=== PATIENT | male | born 1970 | race Caucasian/White ===

== ENCOUNTER → 2016-06-26 | Outpatient (CLI) | payer BC ==
--- NOTE | 2016-06-26 21:41 | PN ---
DATE OF SERVICE: 06/26/2016 A 45-year-old gentleman who has been followed in the sleep center for treatment of severe obstructive sleep apnea/hypopnea index. Apnea-hypopnea index 94. Patient is on treatment with BiPAP. I checked his BiPAP unit. Pressure is 16/12 cm of water. Usage is 30 out of 30 nights for more than 4 hours every 7.5 hours, leak 38 L/min. Patient did not change his nasal pillow mask for a while and it is loose. Apnea-hypopnea index reading from the machine is only 0.8, which is perfect. MEDICATIONS: 1. Omeprazole. 2. Testosterone. [place] Sleepiness Scale is 7. During physical exam, patient in no distress. BP 144/89, HR 84, RR 16. Height 5 feet 11 inches. Weight 334, BMI 46.5. Patient lost weight from 361 pounds down to 339 pounds. Temperature 97.2. Like since last titration was last visit. Oxygen saturation at room air 97%. HEENT: PERRLA, EOMI. LUNGS: Clear. HEART: S1, S2 regular. ABDOMEN: Soft, nontender. EXTREMITIES: No edema. IMPRESSION: 1. Severe obstructive sleep apnea-hypopnea syndrome on full control with bi-level positive airway pressure 16/12 cm of water. Patient demonstrated 100% compliance with treatment, benefitting from treatment. 2. Obesity. Patient lost 20 pounds. 3. Hypertension. 4. Acid reflux. 5. History psoriasis. 6. Restriction of nasal breathing. 7. Status post right eye surgery in the past. PLAN: 1. Continue treatment with CPAP every night for the whole night. 2. Continue losing weight. 3. Sleep hygiene with regular time in bed for at least 8 hours. 4. No driving if feeling any sleepiness. 5. Prescription for all necessary CPAP supplies, including mask, tube, filters. 6. Followup visit in 1 year. Thank you very much for allowing me to participate in the management your patient. Sincerely, Xavi Arguello MD, PhD, FAASM. Diplomat of [place] [employer], Sleep Medicine Board by [place] [employer] [place] [employer] Wrapper Stemmer Operator of [facility] [place]
== END | disposition home or self-care (01) ==

== ENCOUNTER → 2021-07-25 | Outpatient (CLI) | payer BC ==
--- NOTE | 2021-07-25 15:49 | CONS ---
CONSULTATION DATE OF SERVICE: 07/25/2021 This 51-year-old gentleman has been evaluated in Sleep Center for obstructive sleep apnea-hypopnea syndrome. HISTORY OF PRESENT ILLNESS/SLEEP-WAKE EVALUATION: The last time I saw this patient was 4 years ago. He continues to be on treatment with CPAP and he is using the equipment every night for the whole night. The patient was diagnosed with sleep apnea in 2008. Since that time, he has been on treatment with BiPAP. His sleep schedule on weekdays is from 10 p.m. to 3:30 a.m. and on weekends from 11 p.m. until 8 a.m. No problems with falling asleep. No TV in bedroom. He usually sleeps on the back position. He wakes up from sleep maybe once with an episode of nocturia. No snoring while on treatment with BiPAP. No history of hypnagogic hallucinations, sleep paralysis or cataplexy. He does not take any naps. [place] Sleepiness Scale is 4, which is in normal range. I checked the patient's BiPAP unit. Pressure is 16/12 cm of water. Usage is 30/30 nights and 29/30 nights for more than 4 hours. Leak is 47 L/minute. Patient is using an AirFit P10 nasal pillow mask. Apnea-hypopnea index is only 1.8, which is totally normal. PAST MEDICAL HISTORY: Positive for hypertension, acid reflux, psoriasis, hyperlipidemia, allergies. PAST SURGICAL HISTORY: Right eye surgery, abdominal hernia repair. MEDICATIONS: Omeprazole, Lipitor, antihistamine medication. REVIEW OF SYSTEMS: Occasional snoring on CPAP; otherwise negative. No fevers. No double vision. No recent chest pain. No shortness of breath. No abdominal pain. No bleeding episodes. No blood in the urine. No seizure episodes. SOCIAL HISTORY: Smoking on and off for 30 years. Alcohol consumption occasional. FAMILY HISTORY: Hypertension, acid reflux. PHYSICAL EXAMINATION: GENERAL: Pleasant gentleman without distress. VITAL SIGNS: BP 147/92, HR 75, RR 15, height 5 feet 10-1/4 inches, weight 335 pounds, body mass index 47.7, temperature 97.7, oxygen saturation at room air 98%. HEENT: PERRLA, EOMI, evaluation of oropharynx showed tongue protrudes midline. Low position of soft palate. NECK: Supple, no JVD. Thyroid is not palpable. Neck is wide; 18-1/2 inches in circumference. LUNGS: Clear to percussion and to auscultation. Good air exchange. No wheezing or rhonchi. HEART: S1, S2 regular. No murmurs, gallops, or rubs. ABDOMEN: Obese. EXTREMITIES: No clubbing or cyanosis. STAFF REPORTER: Awake, alert, and oriented x3. Cranial nerves 2 to 7 intact. There is no fasciculation or atrophy. noted. No focal deficits observed. IMPRESSION: 1. Severe obstructive sleep apnea-hypopnea syndrome; apnea-hypopnea index during the previous sleep study was 94.4. The patient continues to use BiPAP equipment every night for the whole night. Normal respiration on BiPAP. 2. Hypertension. 3. Obesity. Body mass index 47.7. 4. Acid reflux. 5. History of psoriasis. 6. Status post right eye surgery. 7. Hyperlipidemia. 8. Allergies. PLAN: 1. Prescription for all necessary BiPAP supplies. I changed the style of the nasal pillow mask to Sloan FX, large size. 2. Losing weight. 3. Sleep hygiene with regular time in bed for at least 7-1/2 to 8 hours. 4. Precautions related to driving. No driving if feeling sleepiness. 5. Follow-up visit in 6 months. Thank you very much for referring this patient for consultation. Sincerely, Xavi Arguello MD, PhD, FAASM Diplomat of [place] [employer] Sleep Medicine Board of [place] [employer] Medicine [employer] Min[employer] Blasting of [facility] [place] MMODL / PIOTRN: [id number] /
== END ==
LOC: SLEEP 14:13
PROVIDERS: ATTEND Internal Medicine
DX: G47.33 Obstructive sleep apnea (adult) (pediatric) (principal); I10 Essential (primary) hypertension; E66.9 Obesity, unspecified; K21.9 Gastro-esophageal reflux disease without esophagitis; E78.5 Hyperlipidemia, unspecified; F17.200 Nicotine dependence, unspecified, uncomplicated; T78.40XA Allergy, unspecified, initial encounter; Z87.2 Personal history of diseases of the skin and subcutaneous tissue; Z99.89 Dependence on other enabling machines and devices; Z68.42 Body mass index [BMI] 45.0-49.9, adult; Z98.890 Other specified postprocedural states; Z79.899 Other long term (current) drug therapy
CPT/HCPCS: 99211

== ENCOUNTER 2022-01-15 06:53 | Day surgery (SDC) | payer BC ==
[2022-01-13 16:04] VITALS: BMI 39.3
[~2022-01-15 06:53] MED LIST: LACTATED RINGERS 1,000 ML IV SCH; LIDOCAINE 1% (10MG/ML) FOR IV START INTRADERMA PRN
[2022-01-15 07:29] VITALS: TEMP 97.2
[2022-01-15] MEDS ORDERED: LIDOCAINE 2% INJ 20 MG/ML (2 ML VIAL) ONE (08:09)
[2022-01-15] MEDS ORDERED: PROPOFOL 10 MG/ML 20 ML VIAL IV ONE (08:09)
--- NOTE | 2022-01-15 08:30 | P.PCN ---
Date of Procedure: 01/15/22 Procedure(s) Performed: BRIEF HISTORY: Patient is a 51-year-old pleasant male scheduled for an elective colonoscopy as a part of screening for colorectal neoplasia. PROCEDURE PERFORMED: Colonoscopy with snare polypectomy. PREOPERATIVE DIAGNOSIS: Screening for colon cancer. IV sedation per Anesthesia. PROCEDURE: After informed consent was obtained, the patient, was brought into the endoscopy unit. IV sedation was administered by Anesthesia under continuous monitoring. Digital rectal examination was normal. Initially the Olympus CF-160 flexible video colonoscope was then inserted in the rectum, gradually advanced into the cecum without any difficulty. Careful examination was performed as the scope was gradually being withdrawn. Ileocecal valve and the appendiceal orifice were visualized and appeared normal. Prep was excellent. Mucosa of the cecum, ascending colon, appeared normal. In the transverse colon there was a 5 mm, 1 cm and 1.5 cm polyps that were removed by snare polypectomy. Rest of the transverse colon, descending colon, sigmoid colon, and rectum appeared normal. Retroflexion was performed in the rectum and no lesions were seen. The patient tolerated the procedure well. IMPRESSION: 5 mm, 1 cm and 1.5 cm polyp in the transverse colon status post snare polypectomy Rest of the colon appeared normal RECOMMENDATIONS: Findings of this examination were discussed with the patient as well as his family..He was advised to follow with the biopsy results. If the biopsy results adenoma he can have a repeat colonoscopy in 3 years.
[2022-01-15 08:41] VITALS: PULSE 58; RESP 16
[2022-01-15 08:57] VITALS: BP 125/70
== END 2022-01-15 09:06 | disposition home or self-care (01) ==
LOC: ORWHC2ENDO 06:53
PROVIDERS: ATTEND Internal Medicine Gastroenterology
DX: Z12.11 Encounter for screening for malignant neoplasm of colon (principal); D12.3 Benign neoplasm of transverse colon; K21.9 Gastro-esophageal reflux disease without esophagitis; E78.5 Hyperlipidemia, unspecified; F17.200 Nicotine dependence, unspecified, uncomplicated; G47.33 Obstructive sleep apnea (adult) (pediatric); Z79.899 Other long term (current) drug therapy
CPT/HCPCS: 88305; 45385; J2704; J2001

== ENCOUNTER → 2022-03-06 | Outpatient (CLI) | payer BC ==
--- NOTE | 2022-03-06 16:35 | P.PN ---
Subjective DATE: 03/06/2022 FOLLOW UP VISIT. Patient with obstructive sleep apnea hypopnea syndrome return to sleep center for follow-up visit. Information from previous visit have been reviewed. Patient is using BIPAP equipment every night for the whole night, getting PAP supplies in time. The patient does not have significant problems with the mask, PAP unit and humidification. [place] sleepiness scale is for. I checked BIPAP unit. BIPAP unit pressure 16/12 cm H2O. Usage is 100 % for more then 4 hours, average 7.4 hours per night. Leak is high 54 l/m. Apnea Hypopnea Index is 1.4, which is normal. MEDICATIONS:1. Omeprazole 2. Pravastatin 3. Sertraline During physical exam: GENERAL: A pleasant patient without any distress. VITAL SIGNS: BP 148/90, HR 78, RR 16, weight 333, temperature 98.3, height is 5 foot and 10 inches, body mass index 47.7, oxygen saturation at room air 99 % . HEENT: PERRLA, EOMI.low position of soft palate, Mallapati 3 . NECK: Supple. No JVD. LUNGS: Clear to percussion and to auscultation. Good air exchange. No wheezing or rhonchi. HEART: S1, S2 regular. ABDOMEN: Soft and nontender. Obese EXTREMITIES: No clubbing or cyanosis. ONCOLOGY TRANSPLANT NETWORK MANAGER: Awake, alert, and oriented x3. No focal deficit. Impressions: 1. Obstructive sleep apnea-hypopnea syndrome. Patient demonstrated great compliance with treatment, benefiting from treatment. 2. Hypertension. 3. Acid reflux. 4. Obesity. 5. Status post right eye surgery. 6. Hyperlipidemia. 7. ALLERGIES. Plan: 1. Continue using PAP equipment every night for the whole night. 2. To change air filter at least 1-2 times per month. 3. PAP unit should stay lower then position of the head. 4. Advised patient to remove all remaining water from humidifier canister daily and make it dry after each usage. Refill canister with fresh distilled water before each usage. 5. Sleep hygiene with regular time in bed for at least 8 hours. 6. Precautions related to driving. No driving if feel any sleepiness. 7. I will maintain prescription for PAP supplies including mask, tube, filters. 8. Follow up visit in 6 months or earlier if patient has any problems. 9. Watching and losing weight. Thank you very much for allowing me to participate in the management of your patient. Xavi Arguello MD, PhD, FAASM. Diplomat of [place] [employer] Medicine, Sleep Medicine Board by [place] [employer] Helmet Coverer of [facility] [place]
== END ==
LOC: SLEEP 16:07
PROVIDERS: ATTEND Internal Medicine
DX: G47.33 Obstructive sleep apnea (adult) (pediatric) (principal); I10 Essential (primary) hypertension; K21.9 Gastro-esophageal reflux disease without esophagitis; E66.9 Obesity, unspecified; E78.5 Hyperlipidemia, unspecified; T78.40XA Allergy, unspecified, initial encounter; Z98.890 Other specified postprocedural states; Z99.89 Dependence on other enabling machines and devices; Z68.42 Body mass index [BMI] 45.0-49.9, adult

== ENCOUNTER → 2022-09-17 | Outpatient (CLI) | payer BC ==
--- NOTE | 2022-09-17 16:57 | P.PN ---
Subjective DATE: 09/17/2022 FOLLOW UP VISIT. Patient with obstructive sleep apnea hypopnea syndrome return to sleep center for follow-up visit. Information from previous visit have been reviewed. Patient is using PAP equipment every night for the whole night, getting PAP supplies in time. The patient does not have significant problems with the mask, PAP unit and humidification. [place] sleepiness scale is 3, which is perfect. I checked information from PAP unit and discussed it with patient. BPAP unit pressure 16/12 cm H2O. Usage is 100 % for more then 4 hours, average 6.1 hours per night. Leak is high 54 l/m, patient is using the large size nasal pillows. Apnea Hypopnea Index is 2.5, which is normal. MEDICATIONS:1. Adipex 2. Omeprazole 3. Lipitor During physical exam: GENERAL: A pleasant patient without any distress. VITAL SIGNS: BP 143/79, HR 70, RR 16 , weight 342, temperature 98.4, oxygen saturation at room air 98 % . HEENT: PERRLA, EOMI.low position of soft palate, Mallapati 3 . NECK: Supple. No JVD. LUNGS: Clear to percussion and to auscultation. Good air exchange. No wheezing or rhonchi. HEART: S1, S2 regular. ABDOMEN: Soft and nontender. Obese EXTREMITIES: No clubbing or cyanosis. ORACLE SECURITY CONSULTANT: Awake, alert, and oriented x3. No focal deficit. Impressions: 1. Obstructive sleep apnea-hypopnea syndrome. Patient demonstrated great compliance with treatment, benefiting from treatment. High leak from the mask 2. Obesity body mass index 49. 3. Hypertension. 4. Acid reflux. 5. Hyperlipidemia. 6. Status post right eye surgery. 7. ALLERGIES. Plan: 1. Continue using PAP equipment every night for the whole night. We will try different type of nasal pillows with chinstrap. 2. To change air filter at least 1-2 times per month. 3. PAP unit should stay lower then position of the head. 4. Advised patient to remove all remaining water from humidifier canister daily and make it dry after each usage. Refill canister with fresh distilled water before each usage. 5. Sleep hygiene with regular time in bed for at least 8 hours. 6. Precautions related to driving. No driving if feel any sleepiness. 7. I will maintain prescription for PAP supplies including mask, tube, filters. 8. Watching and losing weight. 9. Follow up visit in 6 months or earlier if patient has any problems. Thank you very much for allowing me to participate in the management of your patient. Xavi Arguello MD, PhD, FAASM. Diplomat of [place] [employer] Medicine, Sleep Medicine Board by [place] [employer] Teacher Education Director of [facility] [place]
== END ==
LOC: SLEEP 16:18
PROVIDERS: ATTEND Internal Medicine
DX: G47.33 Obstructive sleep apnea (adult) (pediatric) (principal); E66.9 Obesity, unspecified; Z68.42 Body mass index [BMI] 45.0-49.9, adult; I10 Essential (primary) hypertension; K21.9 Gastro-esophageal reflux disease without esophagitis; E78.5 Hyperlipidemia, unspecified; Z48.810 Encounter for surgical aftercare following surgery on the sense organs; Z99.89 Dependence on other enabling machines and devices; Z79.899 Other long term (current) drug therapy
CPT/HCPCS: 99212

== ENCOUNTER 2022-12-03 09:23 | Day surgery (SDC) | payer BC ==
[~2022-12-03 09:23] MED LIST changes: +DEXAMETHASONE SOD PHOSPHATE 4 MG/ML 1 ML VIAL IV ONE; +DEXAMETHASONE SOD PHOSPHATE 4 MG/ML 1 ML VIAL IV PRN; +FAMOTIDINE 20 MG/2 ML VIAL IV PRN; +HYDROmorphone 0.5 MG/0.5 ML SYRINGE IVP PRN; +MIDAZOLAM 2 MG/2 ML VIAL IV PRN; +ONDANSETRON 4 MG/2 ML VIAL IVP ONE; +ONDANSETRON 4 MG/2 ML VIAL IVP PRN; +ceFAZolin 3 GM in SODIUM CHLORIDE 0.9% 100 ML IVPB PRN
[2022-12-03] MEDS: OXYMETAZOLINE 0.05% NASL SPRAY 1 SPRAY BOTTLE EA NOSTRIL PRN ×5 (10:13→10:33)
[2022-12-03] MEDS ORDERED: SUCCINYLCHOLINE CHLORIDE 200 MG/10 ML VIAL IV ONE (10:48)
[2022-12-03] MEDS ORDERED: LIDOCAINE 2% INJ 20 MG/ML (2 ML VIAL) ONE (10:48)
[2022-12-03] MEDS ORDERED: PROPOFOL 10 MG/ML 20 ML VIAL IV ONE (10:48)
[2022-12-03] MEDS ORDERED: MIDAZOLAM 2 MG/2 ML VIAL ONE (10:48)
[2022-12-03] MEDS ORDERED: fentaNYL (PF) 50 MCG/ML 2 ML AMP ONE (10:48)
[2022-12-03] MEDS ORDERED: LIDOCAINE 1%-EPI 1:100,000 20 ML VIAL SUBMUCOSAL ONE ×2 (11:03→11:07)
[2022-12-03] MEDS ORDERED: BACITRACIN ZINC 500 UNIT/GM OINT 28.4 GM TUBE TOPICAL ONE ×2 (11:03→11:25)
--- NOTE | 2022-12-03 11:36 | P.OP ---
Date of Procedure: 12/03/22 Preoperative Diagnosis: Deviated nasal septum Inferior turbinate hypertrophy Postoperative Diagnosis: Same Procedure(s) Performed: Septoplasty Outfracture and submucous resection of the inferior turbinates Anesthesia: ANALISAA Surgeon: Morris Medina Estimated Blood Loss (ml): 5 Pathology: other (Nasal septal bone and cartilage) Condition: stable Disposition: PACU Indications for Procedure: Is a 52-year-old white male with chronic nasal airway obstruction congestion bilaterally Operative Findings: Nasal septum deviated left anteriorly to posteriorly and more so to the right than left with inferior turbinate hypertrophy bilaterally Description of Procedure: DESCRIPTION OF PROCEDURE: The patient was brought to the operative suite, placed in the supine position. The patient underwent induction of general anesthesia with oral endotracheal intubation without difficulty. The patient was prepped and draped in the usual aseptic fashion. 1% lidocaine with 1:100,000 epinephrine was infused submucosally on both sides of the nasal septum. While this was taking vasoconstrictive effect, the inferior turbinates were infractured with a [place] elevator. Partial submucous resection of the inferior turbinates was performed with Coblation device ablating a portion of the submucosal soft tissue. The inferior turbinates were then outfractured with a [place] elevator. A left hemitransfixion incision was then made through the mucoperichondrial. Mucoperiosteal flap on the left elevated. Bony cartilaginous junction was disarticulated and mucoperiosteal flap on the right was elevated. Bony nasoseptal deformity were removed with Matilde forceps and an inferior cartilaginous strip was removed, leaving a full 1.5 cm caudal strut. Checking intranasally, this corrected the nasal septal deformities and the hemitransfixion incision was closed with running 4-0 chromic suture. The bilateral Chaney airway splints coated in bacitracin ointment were placed in the nasal cavities and sutured transseptally with 4-0 nylon suture. The patient was then suctioned in an orogastric fashion. The patient was allowed to emerge from general anesthesia, having tolerated the procedure well and was extubated in the operating suite, transferred to postoperative recovery area in satisfactory condition.
[2022-12-03 12:18] VITALS: TEMP 97
[2022-12-03 12:44] VITALS: BP 148/81; PULSE 68; RESP 18
== END 2022-12-03 13:32 | disposition home or self-care (01) ==
LOC: OR 09:23
PROVIDERS: ATTEND Otolaryngology
DX: J34.2 Deviated nasal septum (principal); J34.3 Hypertrophy of nasal turbinates; J34.89 Other specified disorders of nose and nasal sinuses; G47.33 Obstructive sleep apnea (adult) (pediatric); K21.9 Gastro-esophageal reflux disease without esophagitis; Z79.1 Long term (current) use of non-steroidal anti-inflammatories (NSAID); Z79.899 Other long term (current) drug therapy
CPT/HCPCS: 30520; 30140; 88300; J2250; J0330; J1100; J0690; J2405; J3010; J2704; J2001

== ENCOUNTER → 2023-06-24 | Outpatient (CLI) | payer BC ==
--- NOTE | 2023-06-24 17:14 | P.PN ---
Subjective DATE: 06/24/2023 FOLLOW UP VISIT. Patient with obstructive sleep apnea hypopnea syndrome return to sleep center for follow-up visit. Information from previous visit have been reviewed. Patient received new BPAP equipment, and this is first visit while patient using new BPAP unit. Patient is using BPAP equipment every night for the whole night, getting PAP supplies in time. The patient does not have significant problems with the mask, BPAP unit and humidification. [place] sleepiness scale is 3. I checked information from BPAP unit. BPAP unit pressure 16/12 cm H2O. Usage is 100 % for more then 4 hours, average 6.9 hours per night. Leak is increased to 51.5 l/m, patient has mustache and gale. Apnea Hypopnea Index is 2.6, which is normal. MEDICATIONS:1. Pravastatin 2. Omeprazole 3. Cetirizine During physical exam: GENERAL: A pleasant patient without any distress. VITAL SIGNS: BP 147/91, HR 86, RR 16 , weight 357, temperature 98.2, oxygen saturation at room air 96 % . HEENT: PERRLA, EOMI.low position of soft palate, Mallapati 3 . NECK: Supple. No JVD. LUNGS: Clear to percussion and to auscultation. Good air exchange. No wheezing or rhonchi. HEART: S1, S2 regular. ABDOMEN: Soft and nontender. Obese EXTREMITIES: No clubbing or cyanosis. ENGINE DISPATCHER: Awake, alert, and oriented x3. No focal deficit. Impressions: 1. Obstructive sleep apnea-hypopnea syndrome. Patient demonstrated great compliance with treatment, benefiting from treatment. 2. Obesity. 3. Hypertension. 4. Hyperlipidemia. 5. Status post right eye surgery. 6. ALLERGIES. 7. Acid reflux. Plan: 1. Continue using PAP equipment every night for the whole night. 2. To change air filter at least 1-2 times per month. 3. PAP unit should stay lower then position of the head. 4. Advised patient to remove all remaining water from humidifier canister daily and make it dry after each usage. Refill canister with fresh distilled water before each usage. 5. Sleep hygiene with regular time in bed for at least 8 hours. 6. Precautions related to driving. No driving if feel any sleepiness. 7. I will maintain prescription for PAP supplies including mask, tube, filters. 8. Watching and losing weight. 9. Follow up visit in 6 months or earlier if patient has any problems. Thank you very much for allowing me to participate in the management of your patient. Xavi Arguello MD, PhD, FAASM. Diplomat of [place] [employer], Sleep Medicine Board by [place] [employer] Reactor Service Operator of [facility] [place]
== END ==
LOC: 3 N SLEEP 16:40
PROVIDERS: ATTEND Internal Medicine
DX: G47.33 Obstructive sleep apnea (adult) (pediatric) (principal); E66.9 Obesity, unspecified; I10 Essential (primary) hypertension; E78.5 Hyperlipidemia, unspecified; K21.9 Gastro-esophageal reflux disease without esophagitis; Z98.890 Other specified postprocedural states; Z99.89 Dependence on other enabling machines and devices
CPT/HCPCS: 99212